=== PATIENT | male | born 1990 ===

== ENCOUNTER 2017-09-08 23:40 | Emergency (ER) | payer BC ==
[2017-09-08 23:45] VITALS: RESP 17
--- NOTE | 2017-09-09 01:42 | ED PDOC ---
HPI: Psych/Substance Abuse Time Seen by Provider: 09/09/17 01:40 Chief Complaint (Nursing): Alcohol Ingestion Chief Complaint (Provider): ALCOHOL INGESTION History Per: Patient (27 Y/O MALE HERE FOR EVALUATION OF ALCOHOL INTOXICATION. PATIENT DENIES ANY HEAD INJURY/ASSAULT. ADMITS ETOH TODAY. ) Past Medical History Reviewed: Historical Data, Nursing Documentation, Vital Signs Vital Signs: Last Vital Signs Temp 98.4 F 09/08/17 23:41 Pulse 114 H 09/08/17 23:41 Resp 17 09/08/17 23:41 BP 144/95 H 09/08/17 23:41 Pulse Ox 96 09/08/17 23:41 - Family History Family History: States: No Known Family Hx - Home Medications Home Medications: Ambulatory Orders Medication Instructions Recorded Unobtainable 09/06/15 - Allergies Allergies/Adverse Reactions: Allergies Allergy/AdvReac Type Severity Reaction Status Date / Time No Known Allergies Allergy Verified 09/06/15 01:17 Review of Systems ROS Statement: Except As Marked, All Systems Reviewed And Found Negative Physical Exam - Reviewed Nursing Documentation Reviewed: Yes Vital Signs Reviewed: Yes - Physical Exam Appears: Positive for: Well, Non-toxic, No Acute Distress Head Exam: Positive for: ATRAUMATIC, NORMAL INSPECTION, NORMOCEPHALIC Skin: Positive for: Normal Color, Warm, DRY Eye Exam: Positive for: EOMI, Normal appearance, PERRL ENT: Positive for: Normal ENT Inspection Neck: Positive for: Normal, Painless ROM Cardiovascular/Chest: Positive for: Regular Rate, Rhythm Respiratory: Positive for: CNT, Normal Breath Sounds Gastrointestinal/Abdominal: Positive for: Normal Exam, Soft Back: Positive for: Normal Inspection Extremity: Positive for: Normal ROM Neurologic/Psych: Positive for: Alert, Oriented - ECG O2 Sat by Pulse Oximetry: 96 - Progress ED Course And Treament: PATIENT WITH STEADY GAIT Disposition - Clinical Impression Clinical Impression: Alcohol ingestion - Patient ED Disposition Is Patient to be Admitted: No - Disposition Disposition: Routine/Home Disposition Time: 01:42 Condition: FAIR Instructions: Alcohol Poisoning Forms: [facility] ([place])
[2017-09-09 05:02] VITALS: BP 132/82; PULSE 86; TEMP 98.1
[2017-09-10 01:03] VITALS: O2SAT 96
== END 2017-09-09 01:45 | disposition home or self-care (01) ==
LOC: H.ER 23:40
DX: F10.129 Alcohol abuse with intoxication, unspecified (principal)